=== PATIENT | male | born 1975 | race African-American/Black ===

== ENCOUNTER 2016-11-19 15:56 | Emergency (ER) | payer OTHER ==
[~2016-11-19] VITALS: Ht 180.3 cm; Wt 65.0 kg
[~2016-11-19 15:56] MED LIST: MOTRIN800 MG PO; TRAMADOL HYDROC50 MG PO
[2016-11-19 17:29] LABS: HEMATOCRIT 43.4 % (39.0-50.0); HEMOGLOBIN 14.5 g/dl (14.0-18.0); IMMATURE GRANULOCYTES 0.3 % (0.0-1.0); MEAN CELL VOLUME 91.6 fL CALC (80.0-100.0); MEAN CORPUSCULAR HGB 30.6 pG CALC (26.0-32.0); MEAN CORPUSCULAR HGB CONC 33.4 g/L CALC (32.0-36.0); NEUT# 5.47 thou/uL (1.82-7.42); RED BLOOD COUNT 4.74 mill/uL (4.70-6.10); RED CELL DISTRI WIDTH 14.3 % (11.5-15.5)
[2016-11-19 17:48] LABS: ALBUMIN 4.4 g/dL (3.2-5.0); ALKALINE PHOSPHATASE 109 u/l (38-126); ANION GAP 15 (6-22 (CALC)); BILIRUBIN, TOTAL 0.9 mg/dL (0.0-1.4); BUN 9 mg/dL (9-20); BUN/CREATININE RATIO 9 (12-20 (CALC)); CALCIUM 9.7 mg/dL (8.4-10.2); CARBON DIOXIDE 25 mmol/l (22-30); CHLORIDE 106 mmol/l (95-108); GFR > 60 ML/MIN (>=60 (CALC)); GFR FOR AFR.AMER. > 60 ML/MIN (>=60 (CALC)); GLUCOSE 88 mg/dL (75-110); POTASSIUM 4.1 mmol/l (3.5-5.1); SGOT/AST 42 u/l (17-59); SGPT/ALT 47 u/l (21-72); SODIUM 142 mmol/l (137-146); TOTAL PROTEIN 7.8 g/dL (6.3-8.2)
[2016-11-19] MEDS ORDERED: PERCOCET 5/325M1 TAB PO (20:11)
[2016-11-19] MEDS ORDERED: CLINDAMYCIN300 M1 PO (20:11)
[2016-11-19 20:15] VITALS: BP 142/77
== END 2016-11-19 20:18 | disposition left against medical advice (07) | DRG 158 ==
LOC: ED 15:56 → ED-I 19:50 → ED 20:18
PROVIDERS: Emergency Medicine
DX: K04.7 Periapical abscess without sinus (principal); L03.211 Cellulitis of face; K05.10 Chronic gingivitis, plaque induced; F17.210 Nicotine dependence, cigarettes, uncomplicated; Z91.19 Patient's noncompliance with other medical treatment and regimen

== ENCOUNTER 2018-10-14 23:58 | Emergency (ER) | payer OTHER ==
[~2018-10-14] VITALS: Ht 180.3 cm; Wt 72.7 kg
[~2018-10-14 23:58] MED LIST changes: +CLINDAMYCIN300 M1 PO; +PERCOCET 5/325M1 TAB PO
[2018-10-15 01:30] VITALS: BP 156/91
== END 2018-10-15 01:30 | disposition home or self-care (01) | DRG 605 ==
LOC: ED 23:58
DX: S20.211A Contusion of right front wall of thorax, initial encounter (principal); F17.210 Nicotine dependence, cigarettes, uncomplicated; W22.09XA Striking against other stationary object, initial encounter; Y93.89 Activity, other specified; Y92.89 Other specified places as the place of occurrence of the external cause; Y99.0 Civilian activity done for income or pay

== ENCOUNTER 2019-01-13 13:29 | Emergency (ER) | payer OTHER ==
[~2019-01-13] VITALS: Ht 180.3 cm; Wt 75.0 kg
[2019-01-13] MEDS ORDERED: NAPROSYN500 MG PO (15:12)
[2019-01-13 15:15] VITALS: BP 122/63
== END 2019-01-13 15:15 | disposition home or self-care (01) | DRG 605 ==
LOC: ED 13:29
DX: S20.211A Contusion of right front wall of thorax, initial encounter (principal); F17.200 Nicotine dependence, unspecified, uncomplicated; X50.0XXA Overexertion from strenuous movement or load, initial encounter